=== PATIENT | female | born 1965 | race Caucasian/White ===

== ENCOUNTER 2017-03-10 19:20 | Emergency (ER) | payer MEDICAID, OTHER ==
[~2017-03-10] VITALS: Ht 157.5 cm; Wt 58.5 kg
[2017-03-10 19:37] VITALS: Ht 157.5 cm; Wt 58.5 kg
[2017-03-10] MEDS ORDERED: ONDANSETRON (ODT) 4 MG TAB ODT STA (20:02)
[2017-03-10] MEDS ORDERED: MECLIZINE 12.5 MG TAB PO ONE (20:30)
[2017-03-10] MEDS ORDERED: ONDA4TAB14 PO (21:21)
[2017-03-10] MEDS ORDERED: MECL-77 PO (21:21)
--- NOTE | 2017-03-10 21:25 | ERD ---
ER Documentation Chief Complaint Date/Time DATE: 03/10/17 TIME: 21:22 Chief Complaint nausea and vomiting since this am with dizziness bs 130 HPI Patient is a 51-year-old who has a history of vertigo complaining of vomiting nausea and dizziness that began this morning. She states the dizziness feels like the room is spinning and he gets worse when she moves her head or goes from sitting to standing. She denies any pain. She has no chest pain, no shortness of breath. No palpitations or diaphoresis. She has not taken any medications for this. ROS All systems reviewed and are negative except as per history of present illness. Medications Home Meds Active Scripts Ondansetron (Ondansetron Odt) 4 Mg Tab.rapdis, 4 MG PO Q6H Y for NAUSEA AND/OR VOMITING, #30 TAB Prov:MARGARETH OLIVERA PA-C 03/10/17 Meclizine Hcl* (Meclizine Hcl*) 25 Mg Tablet, 25 MG PO Q8H Y for DIZZINESS, #30 TAB Prov:MARGARETH OLIVERA PA-C 03/10/17 Reported Medications [none] No Conflict Check 02/28/15 Allergies Allergies: Coded Allergies: No Known Drug Allergies (Unverified Allergy, Unknown, 03/10/17) PMhx/Soc History of Surgery: Yes (R VERICOSE VEIN) Anesthesia Reaction: Yes (FELT WEIRD AFTERWARD) Hx Neurological Disorder: No Hx Respiratory Disorders: No Hx Cardiac Disorders: No Hx Psychiatric Problems: No Hx Miscellaneous Medical Probl: Yes (DIZZINESS LAST YEAR) Hx Alcohol Use: No Hx Substance Use: No Hx Tobacco Use: No Smoking Status: Never smoker FmHx Family History: No diabetes Physical Exam Vitals Vital Signs Date Time Temp Pulse Resp B/P Pulse Ox O2 Delivery O2 Flow Rate FiO2 03/10/17 19:37 98.6 99 20 149/75 99 Physical Exam General: well developed, well nourished, alert, nontoxic, no distress Head: normocephalic, atraumatic Eyes: PERRL, normal conjunctiva Neck: Supple, nontender, no lymphadenopathy, no midline tenderness Ears: no tenderness over mastoids bilaterally, TMs nonerythematous, no exudates in canal Respiratory: Clear to auscaultation bilaterally, speaks in full sentences, no use of accesory muscles or labored breathing, no rales, ronchi, or wheezing Cardiovascular: RRR, No murmurs GI: soft, non tender, non distended, negative murphys sign, negative mcburneys point tenderness, no cva tenderness bilaterally, no rebound or guarding Neuro: CN 2-12 intact, normal speech, manual qa tester strength 5/5 bilaterally, rapid alternating movements wnl, romberg and pronator drift wnl Results 24 hrs Laboratory Tests Test 03/10/17 19:36 03/10/17 20:34 Bedside Glucose 134mg/dL 138mg/dL Current Medications Medications (Trade) Dose Ordered Sig/Zion Route PRN Reason Start Time Stop Time Status Last Admin Dose Admin Meclizine HCl (Antivert) 50 mg ONCE ONCE PO 03/10/17 20:30 03/10/17 20:31 DC 03/10/17 20:31 Ondansetron HCl (Zofran Odt) 4 mg ONCE STAT ODT 03/10/17 20:02 03/10/17 20:04 DC 03/10/17 20:31 Procedures/MDM Patient presents with dizziness that is most likely benign positional vertigo. She is mildly elevated blood pressure 149/75 otherwise vitals are normal. Neurological examination is normal. Blood sugar is normal. EKG also was within normal limits with no evidence of ST elevation or acute ischemic changes. I reviewed the case with Dr. Nick we agree that she is suitable outpatient management and she was given Zofran and meclizine and here in the emergency room before being discharged with prescriptions for both. At discharge she did state that she was feeling some improvement after getting the medications. Recommended this patient follow up with her primary care doctor within 48 hours or return to the emergency room for any worsening of symptoms. However this time I do believe there is suitable for outpatient management. I answered all their questions and they agreed with the plan and were discharged home. Departure Diagnosis: Primary Impression: Benign positional vertigo Condition: Stable Patient Instructions: Benign Positional Vertigo Additional Instructions: Llame al doctor JOSEPH y nabil cass MAGNOLIA PARA DENTRO DE 1-2 HARDEN.Dgale a la secretaria que nosotros le instruimos hacer esta magnolia.Avise o llame si lambert condicin se empeora antes de la magnolia. Regresa aqui si peor o no mejor. MARGARETH OLIVERA PA-C Mar 10, 2017 21:25
[2017-03-10 21:29] VITALS: BP 134/68; PULSE 82; RESP 16
== END 2017-03-10 21:29 | disposition home or self-care (01) ==
LOC: FTE 19:20
DX: H81.10 Benign paroxysmal vertigo, unspecified ear (principal); R42 Dizziness and giddiness
CPT/HCPCS: 82962; 93005; Z7502; Z7610

== ENCOUNTER 2019-04-12 09:39 | Day surgery (SDC) | payer OTHER ==
[2019-04-12] VITALS (9 sets, daily range): BP systolic 102–166; BP diastolic 63–85; PULSE 74–90; RESP 12–20; Ht 149.9 cm; Wt 60.2 kg
[~2019-04-12] VITALS: Ht 149.9 cm; Wt 60.2 kg
[~2019-04-12 09:39] MED LIST: MECL-77 PO; ONDA4TAB14 PO
[2019-04-12] MEDS ORDERED: CEFAZOLIN 2 GM/50 ML (PMX) 50 ML IVPB ONE (12:30)
[2019-04-12] MEDS ORDERED: SOD CHLORIDE 0.9% 1,000 ML IV ONE (12:30)
[2019-04-12] MEDS ORDERED: BUPIVACAINE 0.25%/EPI (SDV) 30 ML INJ ONE (13:18)
--- NOTE | 2019-04-12 13:19 | PREAC ---
Date/Time of Note Date/Time of Note DATE: 04/12/19 TIME: 13:17 Anesthesia Eval and Record Evaluation Time Pre-Procedure Interview DATE: 04/12/19 TIME: 13:17 Age 53 Sex female NPO: 8 hrs Preoperative diagnosis R breast cyst Planned procedure R breast cyst excision Past Medical History Past Medical History: Includes GI: Obesity Surgery & Anesthesia Issues No known issue Meds Anticoagulation: No Beta Vicky within 24 hr: No Reason Beta Vicky not given: Pt. not on B-Vicky Discontinued Reported Medications [none] No Conflict Check 02/28/15 Discontinued Scripts Ondansetron (Ondansetron Odt) 4 Mg Tab.rapdis, 4 MG PO Q6H PRN for NAUSEA AND/OR VOMITING, #30 TAB Prov:MARGARETH OLIVERA PA-C 03/10/17 Meclizine Hcl* (Meclizine Hcl*) 25 Mg Tablet, 25 MG PO Q8H PRN for DIZZINESS, #30 TAB Prov:MARGARETH OLIVERA PA-C 03/10/17 Current Medications Sodium Chloride 1,000 ml @ 75 mls/hr [id number] ONCE IV ; Start 04/12/19 at 12:30; Stop 04/13/19 at 01:49 Meds reviewed: Yes Allergies Coded Allergies: No Known Drug Allergies (Unverified Allergy, Unknown, 04/12/19) Allergies Reviewed: Yes Labs/Studies Labs Reviewed: Reviewed by anesthesiologist test: Negative Pre-procedure Exam Last vitals Vital Signs Date Temp Pulse Resp B/P (MAP) Pulse Ox O2 O2 Flow FiO2 Time Delivery Rate 04/12/19 98.0 87 16 166/85 99 Room Air 11:15 (112) Airway: Adequate mouth opening, Adequate thyromental dist Mallampati: Mallampati II Teeth: Normal Lung: Normal Heart: Normal ASA Physical Status ASA physical status: 2 Emergency: None Planned Anesthetic General/MAC: Mask, MAC Pre-operative Attestations Prior to commencing anesthesia and surgery, the patient was re-evaluated, there was verification of: *The patient's identity *The results of appropriate recent lab work and preoperative vital signs *The above evaluation not changing prior to induction *Anesthetic plan, risk benefits, alternative and complications discussed with patient/family; questions answered; patient/family understands, accepts and wishes to proceed. FARIDA MCNEAL Apr 12, 2019 13:19
[2019-04-12] MEDS ORDERED: MEPERIDINE 25 MG INJ IV PRN (13:30)
[2019-04-12] MEDS ORDERED: HYDROmorphONE 1 MG/5 ML IV SYRINGE IV PRN ×3 (13:30)
[2019-04-12] MEDS ORDERED: ALBUTEROL 0.083% (NEB) 2.5 MG/3 ML AMP HHN PRN (13:30)
[2019-04-12] MEDS ORDERED: ONDANSETRON 4 MG INJ IV PRN ×2 (13:30→14:30)
[2019-04-12] MEDS ORDERED: FENTAnyl 50 MCG/ML VIAL IV PRN ×2 (13:30)
[2019-04-12] MEDS ORDERED: DIPHENHYDRAMINE 50 MG INJ IV PRN (13:30)
[2019-04-12] MEDS ORDERED: METOCLOPRAMIDE 10 MG INJ IV PRN (13:30)
[2019-04-12] MEDS ORDERED: LIDOCAINE 1%/EPI 30 ML INJ ONE (13:41)
[2019-04-12] MEDS ORDERED: BUPIVACAINE 0.25% (MPF) 30 ML INJ ONE (13:41)
[2019-04-12] MEDS ORDERED: FENTAnyl 50 MCG/ML VIAL ONE (13:42)
[2019-04-12] MEDS ORDERED: MIDAZOLAM 1 MG/ML 2 ML INJ ONE (13:42)
--- NOTE | 2019-04-12 14:13 | OPR ---
Date/Time of Note Date/Time of Note DATE: 04/12/19 TIME: 14:08 Operative Report Procedure Date: Apr 12, 2019 Preoperative Diagnosis Epidermal inclusion cyst right breast Postoperative Diagnosis Epidermal inclusion cyst right breast Operation/Procedure Performed Excision epidermal inclusion cyst right breast Surgeon see signature line Education Reviewer None Anesthesia Type: MAC Anesthesiologist: FARIDA MCNEAL Estimated Blood Loss: minimal Transfusion none Specimen Epidermal inclusion cyst right breast Grafts/Implants none Complications none Pt Condition Post Procedure: stable Disposition: PACU Indications Patient is a 53-year-old female who presented to the office complaining of a soft tissue mass of the right breast area. This was located in the upper inner quadrant of the right breast. There was a punctate sinus opening identified. The mass was most consistent with an epidermal inclusion cyst. Patient was scheduled for excision for symptom relief and definitive pathological diagnosis. All risks and benefits of the procedure including, but not limited to: Wound infection, excessive bleeding, postoperative serom a/hematoma ocurrence, mass recurrence, etc. were all discussed with the patient in full detail. Patient fully understood and wished to proceed with the procedure. Informed consent was obtained. Procedure Description Patient was brought to the operating room placed supine on the operating table. Bilateral sequential compression devices were placed on both lower extremities. A dose of broad-spectrum perioperative intravenous antibiotics was given. The mass which was located in the upper inner quadrant of the right breast was preoperatively marked and confirmed with the patient in the holding area. After achieving adequate sedation the patient's right breast was then prepped and draped in standard surgical fashion. After performance of the surgical timeout 1% lidocaine with epinephrine was injected around the area of the mass creating a field block. An elliptical incision was then made around the mass to include the punctate sinus opening using a 15 blade scalpel. Incision was carried down through the skin and dermis into the subcutaneous tissues using combination of sharp dissection and Bovie electrocautery. The epidermal inclusion cyst was then circumferentially dissected and transected at its base and the subcutaneous tissues. Specimen was then passed off the field for pathological analysis. Hemostasis was inspected for noted to be total. The wound cavity was irrigated with warm saline and the irrigant returned clear. 0.25% Marcaine was injected around the incision. Incision was then reapproximated in layers using interrupted 3-0 Vicryl sutures for the dermal layer. The skin was reapproximated using a running 4-0 Monocryl suture in subcuticular fashion. Incision was cleaned and Dermabond was applied. Patient was then transferred to the recovery room in stable condition. All counts were correct at the end of the case x2. CUATE MARTIN MD Apr 12, 2019 14:13
[2019-04-12] MEDS ORDERED: IBUPROFEN 600 MG TAB PO PRN (14:30)
--- NOTE | 2019-04-13 07:33 | PAC ---
Date/Time of Note Date/Time of Note DATE: 04/13/19 TIME: 07:33 Post-Anesthesia Notes Post-Anesthesia Note Last documented vital signs Vital Signs Date Temp Pulse Resp B/P (MAP) Pulse Ox O2 O2 Flow FiO2 Time Delivery Rate 04/12/19 97.9 18 124/65 98 Room Air 14:47 (84) 04/12/19 78 14:42 Activity: WNL Respiratory function: WNL Cardiovascular function: WNL Mental status: Baseline Pain reasonably controlled: Yes Hydration appropriate: Yes Nausea/Vomiting absent: Yes FARIDA MCNEAL Apr 13, 2019 07:33
== END 2019-04-12 15:35 | disposition home or self-care (01) ==
LOC: SDS 09:39
PROVIDERS: ATTEND Surgery
DX: N60.01 Solitary cyst of right breast (principal)
CPT/HCPCS: 19120; 88304; J0690; J2250; J3010